=== PATIENT | female | born 1990 | race African-American/Black ===

== ENCOUNTER 2018-05-11 14:40 | Inpatient (IN) | payer OTHER ==
[~2018-05-11] VITALS: Ht 157.5 cm; Wt 68.0 kg
[2018-05-11] MEDS ORDERED: SODIUM CHLORIDE 0.9% 1,000 ML IV ONE ×2 (17:33→19:58)
[2018-05-11] MEDS ORDERED: ONDANSETRON HCL 4MG/2ML INJ IV STA (17:33)
[2018-05-11] MEDS ORDERED: KETOROLAC 30MG/ML VIAL IV ONE (18:00)
[2018-05-11 18:05] LABS: HEMATOCRIT. 42.1 % (36.0-48.0); HEMOGLOBIN. 13.7 g/dL (12.0-16.0); MEAN CORPUSCULAR HEMOGLOBIN 25.1 pg (28.0-32.0); MEAN CORPUSCULAR VOLUME 77.2 fL (81.0-99.0); PLATELET 230 x1000/uL (130-400); RED BLOOD CELL COUNT 5.45 mill/uL (4.2-5.4); RED CELL DISTRIBUTION WIDTH 13.7 % (11.6-14.6)
[2018-05-11 18:10] LABS: CHLORIDE 108 mEq/L (98-107)
[2018-05-11 18:11] LABS: INR 1.1; PROTHROMBIN TIME 11.1 sec (9.1-11.1)
[2018-05-11 18:20] LABS: HCG SCREEN NEGATIVE
[2018-05-11] MEDS ORDERED: ONDANSETRON HCL 4MG/2ML INJ IV ONE (20:00)
[2018-05-11] MEDS ORDERED: FENTANYL CITRATE/PF 50MCG/ML 2ML VIAL IV ONE (20:00)
[2018-05-11] MEDS ORDERED: POTASSIUM CHLORIDE 20MEQ TABLET SR PO ONE (21:30)
[2018-05-11 22:04] LABS: PLATELET ESTIMATE NORMAL
[2018-05-11 22:39] LABS: CLARITY URINE CLEAR (CLEAR); COLOR URINE YELLOW (YELLOW); KETONES URINE 2+ (NEGATIVE); LEUKOCYTE ESTERASE URINE NEGATIVE (NEGATIVE); NITRITE URINE NEGATIVE (NEGATIVE); OCCULT BLOOD URINE NEGATIVE (NEGATIVE); PROTEIN URINE TRACE (NEGATIVE); SPECIFIC GRAVITY URINE 1.023 (1.005-1.030); UROBILINOGEN URINE 0.2 E.U./dL (0.2-1.0)
[2018-05-11 22:53] LABS: *COCAINE SCREEN URINE NEGATIVE (NEGATIVE)
[2018-05-11 22:54] LABS: *AMPHETAMINES SCREEN URINE NEGATIVE (NEGATIVE); *BARBITURATES SCREEN URINE NEGATIVE (NEGATIVE); *BENZODIAZEPINES SCREEN URINE NEGATIVE (NEGATIVE); METHADONE URINE SCREEN NEGATIVE (NEGATIVE); OPIATES URINE SCREEN NEGATIVE (NEGATIVE); PHENCYCLIDINE URINE SCREEN NEGATIVE (NEGATIVE)
[2018-05-11 23:02] LABS: CANNABINOID URINE SCREEN PRESUMTIVE POSITIVE (NEGATIVE)
[2018-05-11] MEDS ORDERED: KCL 10MEQ/50ML PREMIX 50 ML IV ONE (23:15)
[2018-05-12 08:00] VITALS: BP 121/86
[2018-05-12 09:00] VITALS: BP 111/77
[2018-05-12 09:40] VITALS: BP 114/77
[2018-05-12] MEDS ORDERED: ONDANSETRON HCL 4MG/2ML INJ IV PRN (10:00)
[2018-05-12] MEDS: MORPHINE SULFATE 4 MG/ML CPJ (NOT FOR IM USE) IV PRN ×2 (11:59→18:23)
[2018-05-12 12:00] VITALS: BP_SYST 107; BP_SYST 114; BP_DIAS 71; BP_DIAS 72
[2018-05-12] MEDS: DEXT 5%/0.45% NACL 1000ML 1,000 ML IV SCH (12:14)
[2018-05-12 16:00] VITALS: BP 107/71
[2018-05-12] MEDS: PANTOPRAZOLE SODIUM 40 MG/VIAL IV SCH (17:47)
[2018-05-12] MEDS: METOCLOPRAMIDE HCL 10MG/2ML VIAL IV SCH ×2 (18:23→23:15)
[2018-05-12 20:00] VITALS: BP_SYST 127; BP_SYST 139; BP_DIAS 79
[2018-05-13] VITALS: BP 104/72
[2018-05-13] MEDS: MORPHINE SULFATE 4 MG/ML CPJ (NOT FOR IM USE) IV PRN ×2 (02:15→08:53)
[2018-05-13 04:44] VITALS: BP 106/69
[2018-05-13] MEDS: METOCLOPRAMIDE HCL 10MG/2ML VIAL IV SCH ×2 (05:47→12:14)
[2018-05-13] MEDS: DEXT 5%/0.45% NACL 1000ML 1,000 ML IV SCH (06:32)
[2018-05-13 07:40] LABS: BASOPHILS % 0.5 % (0.0-2.0); HEMATOCRIT. 36.3 % (36.0-48.0); HEMOGLOBIN. 11.7 g/dL (12.0-16.0); LYMPHOCYTES % 32.7 % (20.0-50.0); MEAN CORPUSCULAR HEMOGLOBIN 25.2 pg (28.0-32.0); MONOCYTES % 11.2 % (2.0-8.0); NEUTROPHILS % 50.6 % (40.0-76.0); PLATELET 187 x1000/uL (130-400); RED BLOOD CELL COUNT 4.66 mill/uL (4.2-5.4); RED CELL DISTRIBUTION WIDTH 13.7 % (11.6-14.6)
[2018-05-13 08:00] VITALS: BP 104/74
[2018-05-13 08:33] LABS: CHLORIDE 107 mEq/L (98-107)
[2018-05-13] MEDS: PANTOPRAZOLE SODIUM 40 MG/VIAL IV SCH (08:53)
[2018-05-13 12:00] VITALS: BP 98/68
[2018-05-13 15:16] VITALS: BP 98/68
== END 2018-05-13 15:50 | disposition home or self-care (01) | DRG 384 ==
LOC: ER 14:47 → 6EST 23:35 → EDBEDREQTM 23:46 → EDBEDREQ 23:46 → ENRESERV 05-12 06:54
PROVIDERS: ADMIT Internal Medicine; ATTEND Internal Medicine
DX: K25.9 Gastric ulcer, unspecified as acute or chronic, without hemorrhage or perforation (principal); K29.70 Gastritis, unspecified, without bleeding; K21.9 Gastro-esophageal reflux disease without esophagitis; E87.8 Other disorders of electrolyte and fluid balance, not elsewhere classified; E87.6 Hypokalemia; F12.90 Cannabis use, unspecified, uncomplicated
CPT/HCPCS: 36415; 74176; 80048; 80053; 80305; 81003; 83690; 84703; 85025; 85610; 96361; 96374; 96375; 99291; C9113; J1885; J2270; J2405; J2765; J3010; J3490; J7030

== ENCOUNTER 2018-12-23 13:08 | Emergency (ER) | payer OTHER ==
[~2018-12-23] VITALS: Ht 157.5 cm; Wt 68.0 kg
[2018-12-23 17:34] VITALS: BP 130/99
== END 2018-12-23 18:07 | disposition home or self-care (01) ==
LOC: ER 13:24
DX: S92.352A Displaced fracture of fifth metatarsal bone, left foot, initial encounter for closed fracture (principal); Z98.890 Other specified postprocedural states; Z98.51 Tubal ligation status; Z90.10 Acquired absence of unspecified breast and nipple; X50.1XXA Overexertion from prolonged static or awkward postures, initial encounter; Y93.89 Activity, other specified; Y92.89 Other specified places as the place of occurrence of the external cause; Y99.8 Other external cause status
CPT/HCPCS: 29515; 73610; 73630; 81025; 99283